=== PATIENT | female | born 1985 | race Caucasian/White ===

== ENCOUNTER → 2017-08-04 10:12 | Outpatient (CLI) | payer SELFPAY ==
[2017-08-04 12:46] LABS: Thyroid Stim Hormone (TSH) 1.15 uIU/mL (0.358-3.74)
== END ==
PROVIDERS: Visit Provider Obstetrics & Gynecology
DX: N95.1 Menopausal and female climacteric states (principal); R61 Generalized hyperhidrosis
CPT/HCPCS: 36415; 84443

== ENCOUNTER → 2017-10-25 16:34 | Outpatient (CLI) | payer SELFPAY ==
--- NOTE | 2017-10-25 16:34 | DT_ITS ---
This patient was seen during an EMR downtime October 18, 2017 - October 25, 2017. This patient may have a combination of paper and electronic documentation or all paper documentation. All documentation is viewable within the e-chart portion of [facility] for each patient visit.
[2017-10-25 20:07] LABS: Chlamydia Trachomatis by PCR Negative (Negative); Neisserai gonorrhoeae by PCR Negative (Negative); Probe Check PASS; Sample Adequacy Control PASS; Specimen Processing Control PASS
== END ==
PROVIDERS: Visit Provider Obstetrics & Gynecology
DX: Z11.3 Encounter for screening for infections with a predominantly sexual mode of transmission (principal)
CPT/HCPCS: 87491; 87591

== ENCOUNTER → 2017-11-02 14:25 | Outpatient (CLI) | payer SELFPAY ==
[2017-11-02 16:03] LABS: Absolute Lymphocyte Count 1.79 X10^3/ul (0.83-4.51); Absolute Neutrophil Count 5.7 X10^3/uL (2.0-7.7); Basophil# 0.01 X10^3/uL; Basophil% 0.1 % (0-1); Eosinophil# 0.05 X10^3/uL; Eosinophils% 0.6 % (0-5); Hematocrit 36.5 % (37-47); Hemoglobin 12.9 g/dl (12.0-15.0); Lymphocyte # 1.79 X10^3/ul (4.0); Lymphocyte % 21.9 % (19-41); Mean Corp Hgb Conc 35.3 g/gl (32-36); Mean Corpuscular Hgb 31.2 pg (27.0-32.0); Mean Corpuscular Volume 88.2 fL (81-99); Mean Platelet Vol. 11.1 fl (6.2-12.0); Monocyte# 0.59 X10^3/uL; Monocyte% 7.2 % (0-10); Neutrophil # 5.72 X10^3/uL (2.7-7.7); Neutrophil % 70.1 % (47-70); Platelet Count 268 K/mm3 (150-450); RBC Distribution Width CV 11.7 % (11.6-14.6); RBC Distribution Width SD 37.3 fl (35.1-43.9); Red Blood Count 4.14 M/mm3 (4.2-5.4); White Blood Count 8.2 K/mm3 (4.4-11.0)
[2017-11-02 16:05] LABS: POSITIVE COUNT NO; POSITIVE DIFFERENTIAL NO; POSITIVE MORPHOLOGY NO
[2017-11-02 16:14] LABS: Color, Urine Yellow (Yellow); Glucose, Dipstick 100 mg/dl (Normal); Leukocyte Esterase-Dipstick 25 /ul (Negative); Nitrite-Dipstick Negative (Negative); Occult Blood-Urine 10 /ul (Negative); Protein-Dipstick 30 mg/dl (Negative); Specific Gravity, Urine 1.025 (1.002-1.030); Urine Bilirubin Dipstick Negative (Negative); Urine Clarity Turbid (Clear); Urine Urobilinogen 1 mg/dl (Normal)
[2017-11-02 16:27] LABS: Ketone-Dipstick 150 mg/dl (Negative)
[2017-11-02 16:36] LABS: Thyroid Stim Hormone (TSH) 0.02 uIU/mL (0.358-3.74)
[2017-11-03 09:48] LABS: HIV - WCH Non-Reactive (Nonreactive); Rubella IgG > 500.0 IU/mL
[2017-11-03 10:15] LABS: Free T3 2.9 pg/mL (2.18-3.98); T4 Free Direct 1.44 ng/dL (0.76-1.46)
[2017-11-04 13:22] LABS: HEPATITIS B SURFACE AG Negative (Negative); Hep C Antibodies <0.1 s/co ratio (0.0-0.9)
[2017-11-05 03:47] LABS: Prenatal RPR NONREACTIVE (NONREACTIVE)
== END ==
PROVIDERS: Visit Provider Obstetrics & Gynecology
DX: O99.281 Endocrine, nutritional and metabolic diseases complicating pregnancy, first trimester (principal); R94.6 Abnormal results of thyroid function studies; Z3A.00 Weeks of gestation of pregnancy not specified
CPT/HCPCS: 36415; 81002; 84439; 84443; 84481; 85025; 86703; 86762; 86803; 87340

== ENCOUNTER → 2018-03-15 08:31 | Outpatient (CLI) | payer SELFPAY ==
[2018-03-15 11:16] LABS: Glucose Challenge Gest 1H 50g 107 mg/dL (70-140)
[2018-03-15 11:17] LABS: Hematocrit 34.4 % (37-47); Hemoglobin 11.6 g/dl (12.0-15.0); Mean Corp Hgb Conc 33.7 g/gl (32-36); Mean Corpuscular Hgb 31.2 pg (27.0-32.0); Mean Corpuscular Volume 92.5 fL (81-99); Mean Platelet Vol. 10.5 fl (6.2-12.0); Platelet Count 275 K/mm3 (150-450); RBC Distribution Width CV 13.4 % (11.6-14.6); RBC Distribution Width SD 43.9 fl (35.1-43.9); Red Blood Count 3.72 M/mm3 (4.2-5.4); Scan Indicated on CBC? Y/N NO; White Blood Count 10.1 K/mm3 (4.4-11.0)
== END ==
PROVIDERS: Visit Provider Obstetrics & Gynecology
DX: Z34.83 Encounter for supervision of other normal pregnancy, third trimester (principal)
CPT/HCPCS: 36415; 82950; 85027

== ENCOUNTER → 2018-05-18 10:16 | Outpatient (CLI) | payer SELFPAY | LOC: LABSPEC 10:17 | PROVIDERS: Visit Provider Obstetrics & Gynecology | DX: Z36.85 Encounter for antenatal screening for Streptococcus B (principal) | CPT/HCPCS: 87081 ==

== ENCOUNTER 2018-06-09 02:25 | Inpatient (IN) | payer SELFPAY ==
[2018-06-09] MEDS: Lactated Ringers 1,000 ML 50 ML IV (03:00)
[2018-06-09 03:18] LABS: Hematocrit 36.6 % (37-47); Hemoglobin 12.8 g/dl (12.0-15.0); Mean Corpuscular Hgb 30.4 pg (27.0-32.0); Mean Corpuscular Volume 86.9 fL (81-99); Mean Platelet Vol. 10.4 fl (6.2-12.0); Platelet Count 303 K/mm3 (150-450); RBC Distribution Width CV 13.2 % (11.6-14.6); Red Blood Count 4.21 M/mm3 (4.2-5.4); Scan Indicated on CBC? Y/N NO
[2018-06-09 03:21] VITALS: BMI 29.0
--- NOTE | 2018-06-09 04:16 | PCM.PN.OB ---
Subjective: Feeling contractions strongly Objective: Afeb VSS FHR tracing Cat 1. - Physical Exam General: Alert, Oriented x3, Cooperative, No apparent distress Abdomen: Soft, Non Tender, Non-Distended, Gravid, Appropriate for Gestational Age Extremities: No edema Skin: No rashes Neurological: Neuro grossly intact Psych/Mental Status: Normal Affect Comment: CE Weight: 164 lb Body Mass Index (BMI) 29.0 Laboratory Tests Past 24 Hrs 06/09/18 06/09/18 03:00 03:00 WBC 12.0 H RBC 4.21 Hgb 12.8 Hct 36.6 L MCV 86.9 MCH 30.4 MCHC 35.0 RDW 13.2 RDW Differential 41.0 Plt Count 303 MPV 10.4 Blood Type B POSITIVE Antibody Screen NEGATIVE Medical Necessity - Tobacco Use Smoking Status: Never smoker Assessment/Plan Progressing in labor. AROM performed with clear fluid noted. Expect FD soon.
--- NOTE | 2018-06-09 04:23 | DCINST_ITS ---
Discharge Diet: No Restrictions Discharge Activity: Return to Normal Activity, May Drive, May Shower Return to work on:: 08/08/18 May shower in (days): 0 May resume sexual activity in: 6 weeks Call your doctor if your incision/area has: Sudden Increased Bleeding, Increased Pain/ Swelling, Foul Smelling Discharge Call your doctor if you observe: Fever of 101 or Higher, Inability to urinate, Inability to have a bowel movement, Using more than one pad per hour, Shortness of breath, Chest pain, Calf discomfort, Uncontrolled pain Cleanse incision/area with: Soap & Water Additional Instructions: If you experience any of the following, contact your healthcare provider. * Bleeding that soaks a pad every hour for 2 hours * Fever 100.4 or higher * Unrelieved incision or abdominal pain * Swelling, redness, discharge or bleeding from your incision or episiotomy site * Your incision begins to separate * Problems urinating (including inability to urinate or burning while urinating). * Visual changes * Severe headache * Flu-like symptoms * Pain or redness in one of both of your breasts * Pain, warmth, tenderness or swelling in your legs, especially the calf area * Frequent nausea and vomiting * Symptoms of depression or anxiety If you experience any of the following, call 911 or go to the nearest Emergency Room. * Chest pain * Problems breathing * Seizure activity * Partial or complete paralysis of a body part, slurred speech, weakness or drooping of the face, or a sudden inability to walk or hold your balance Allergies/Adverse Reactions: Allergies No Known Allergies Allergy (Verified 06/09/18 03:22) Medications to take at Discharge Vits [Prenatabs FA ] 1 tablet PO DAILY 07/24/14 Ibuprofen 600 mg PO 4X/DAY #30 tab 06/09/18 The following prescriptions were given: Ibuprofen 600 mg PO 4X/DAY #30 tab Please Follow Up With: Yana Galeano MD When: 6 weeks Primary Care Physician: Fantasma Woodward [Primary Care Provider] - Test Results: Test results from this visit will be discussed in further detail at your follow- up appointment, if applicable.
--- NOTE | 2018-06-09 04:23 | PCM.OB.VAG ---
- Problem List (1) Active labor at term Status: Acute Vaginal Delivery Maternal Presentation: Active Labor 40 weeks ega in active labor Amniotic Membrane Rupture Type: Artificial Rupture of Membrane time: 0410 Amniotic Fluid Description: Clear Final LIZ: 06/09/18 Final LIZ Source: US <20 weeks Gestational age: 40 Weeks and 0 Days Date of Procedure: 06/09/18 Pre-Operative Diagnosis: Labor Post-Operative Diagnosis: same Surgery/ Procedure Performed: Spontaneous Vaginal Delivery Type of Anesthesia: None Description of Procedure: Progressed to FD then pushed over two contractions to deliver a live male without complication. There was a tight nuchal cord which was reduced at delivery. The mouth was suctioned with a bulb suction. There was an active cry shortly after delivery. Delayed cord clamping was employed. The cord was clamped and cut and baby placed on mom's chest for skin to skin. The placenta delivered spontaneously intact with a centrally located 3VC. The uterus contracted well. Inspection revealed a small first degree posterior vaginal tear. This was repaired with a single figure of eight stitch of 2-0 Vicryl. Presentation: Vertex Placental Delivery Description: Spontaneous Placenta Disposition: [facility] Percentage of Placenta Abruption: 0 Cord Vessel Description: 3 Vessels Nuchal Cord Compression: Without compression Cord Entanglement: Around neck x 1, tight Estimated Blood Loss: 300cc Infant A gender: Male (1 minute): 8 (5 minute): 9 Episiotomy Description: None Laceration: Midline, Vaginal Extension/lac, 1st degree Medications given after delivery: IV Pitocin Complications: None
[2018-06-09] MEDS: Oxytocin 30 units/NS 500 ml 30 UNITS/500 ML IV.SOLN 334 UNITS IV (05:00)
[2018-06-09] MEDS: Oxytocin 30 units/NS 500 ml 30 UNITS/500 ML IV.SOLN 167 UNITS IV (05:30)
[2018-06-09] MEDS: Ibuprofen 600 MG Tablet PO ×2 (05:37→11:47)
--- NOTE | 2018-06-09 07:34 | PCM.PN.OB ---
Subjective: Day of delivery Doing well. No concerns voiced. Breast feeding and baby has latched on well at least once for 45 min feed - Physical Exam General: Alert, Oriented x3, Cooperative, No apparent distress HEENT: Atraumatic Neck: Supple Psych/Mental Status: Normal Affect Weight: 74.389 kg Body Mass Index (BMI) 29.0 Laboratory Tests Past 24 Hrs 06/09/18 06/09/18 03:00 03:00 WBC 12.0 H RBC 4.21 Hgb 12.8 Hct 36.6 L MCV 86.9 MCH 30.4 MCHC 35.0 RDW 13.2 RDW Differential 41.0 Plt Count 303 MPV 10.4 Blood Type B POSITIVE Antibody Screen NEGATIVE Medical Necessity - Tobacco Use Smoking Status: Never smoker Assessment/Plan All Active Problems Active labor at term (Resolved) Day of Delivery 39 + wk Spont labor to Stable pp. Continue care
[2018-06-09 08:37] VITALS: BP 124/71; PULSE 89; RESP 16; TEMP 36.7; O2SAT 97
[2018-06-09] MEDS: Prenatal Vits Tablet 1 TABLET PO (11:49)
[2018-06-09 12:45] VITALS: BP 111/64; PULSE 106; RESP 18; TEMP 36.7; O2SAT 99
[2018-06-09 15:59] VITALS: BP 124/81; PULSE 100; RESP 16; TEMP 36.9; O2SAT 100
[2018-06-09 20:15] VITALS: BP 122/83; PULSE 106; RESP 15; TEMP 36.9; O2SAT 97
[2018-06-09 23:45] VITALS: BP 113/69; PULSE 95; RESP 15; TEMP 36.8; O2SAT 95
[2018-06-10 05:06] VITALS: BP 116/74; PULSE 84; RESP 15; TEMP 36.9; O2SAT 98
[2018-06-10] MEDS: Ibuprofen 600 MG Tablet PO ×2 (05:10→20:11)
[2018-06-10 05:32] LABS: Hematocrit 33.5 % (37-47); Hemoglobin 11.4 g/dl (12.0-15.0); Mean Corpuscular Hgb 29.8 pg (27.0-32.0); Mean Corpuscular Volume 87.7 fL (81-99); Mean Platelet Vol. 10.3 fl (6.2-12.0); Platelet Count 281 K/mm3 (150-450); RBC Distribution Width CV 13.2 % (11.6-14.6); RBC Distribution Width SD 40.7 fl (35.1-43.9); Red Blood Count 3.82 M/mm3 (4.2-5.4); White Blood Count 15.8 K/mm3 (4.4-11.0)
[2018-06-10 05:37] LABS: Scan Indicated on CBC? Y/N NO
--- NOTE | 2018-06-10 07:42 | PCM.PN.OB ---
Subjective: PPD#1 Doing well minimal pain. States would like to stay due to difficulty with nursing, breast/nipple soreness - Physical Exam General: Alert, Oriented x3, Cooperative, No apparent distress HEENT: Atraumatic Neck: Supple Abdomen: Soft - Fundus firm NT at umbilicus Psych/Mental Status: Normal Affect Vital Signs Temp Pulse Resp BP Pulse Ox 98.4 F 84 15 116/74 98 06/10/18 05:06 06/10/18 05:06 06/10/18 05:06 06/10/18 05:06 06/10/18 05:06 Oxygen Delivery Method Room Air Weight: 74.389 kg Body Mass Index (BMI) 29.0 Intake and Output for Last 24 Hours 06/08/18 06/09/18 06/10/18 23:59 23:59 23:59 Output Total 700 / 700 Balance -700 / -700 Laboratory Tests Past 24 Hrs 06/10/18 04:57 WBC 15.8 H RBC 3.82 L Hgb 11.4 L Hct 33.5 L MCV 87.7 MCH 29.8 MCHC 34.0 RDW 13.2 RDW Differential 40.7 Plt Count 281 MPV 10.3 Medical Necessity - Tobacco Use Smoking Status: Never smoker Assessment/Plan All Active Problems Active labor at term (Resolved) PPD#1 39 + wk Spont labor to Stable pp. Continue care
[2018-06-10 08:00] VITALS: BP 113/59; PULSE 91; RESP 18; TEMP 37; O2SAT 96
[2018-06-10] MEDS: Prenatal Vits Tablet 1 TABLET PO (10:08)
--- NOTE | 2018-06-10 10:15 | NURSING ---
assisted mom with latching baby onto breast. deep latch achieved. mom still expresses significant breast pain throughout each feeding. pain medicine offered, but declined
--- NOTE | 2018-06-10 12:21 | CASEMGMT ---
Social Work Brief Assessment - Labor and Delivery Unit Refer documentation below for further details. Date of Referral/Notification: 06/10/18 Time of Referral: 9:11A Referred By: RNSONIA Reason for Referral: PHQ9 TRIGGERED REFERRAL Date of Intervention: 06/10/18 Time of Intervention: 11:00A Informant: Medical record and mother of baby (MOB) and father of baby (FOB) History: PT WITH HX OF DEPRESSION AFTER FIRST BABY 3 YEARS AGO AND SOME DEPRESSION THROUGHOUT THIS . Assessment: PT IS A 32 Y/O FEMALE WHO DELIVERED BABY BOY (ALBERTA MG) YESTERDAY, 06/09/18. INTRODUCED THIS WORKER?S ROLE AND REASON FOR REFERRAL. MOB CALM AND COOPERATIVE DURING ASSESSMENT. MOB AND FOB, MARIA DEL CARMEN MG REPORT HAVE ALL NEEDS MET FOR BABY. MOB HAVING SOME DIFFICULTY WITH . SUPPORT AND EDUCATION PROVIDED. ANTICIPATE NURSE TO MEET WITH PT THIS DAY. MOB REPORTS SOME HX OF DEPRESSION AND STATES AT ONE TIME DID DO COUNSELING NOT RELATED TO DEPRESSION. PCP AND CHILDREN?S RN ANTE PARTUM IS DR. RUBY HOOD. MOB DENIES ANY HX OF SUBSTANCE ABUSE. DISCUSSED DEPRESSION SIGNS AND SYMPTOMS. MOB VERBALIZES UNDERSTANDING OF SIGNS AND SYMPTOMS AND DENIES ANY NEEDS FOR SERVICES. INFORMATION PACKET ON PPD PROVIDED. UPDATED PT?S NURSE, SONIA. THIS WORKER TO REMAIN AVAILABLE SHOULD ANY FURTHER NEEDS ARISE. Plan: ANTICIPATE D/C HOME TOMORROW. INFORMATION AND RESOURCES PROVIDED ON PPD. -Shaunna Velasco, [employer], [employer]
[2018-06-10 14:05] VITALS: BP 131/89; PULSE 107; RESP 18; TEMP 36.6; O2SAT 97
[2018-06-10 20:04] VITALS: BP 116/72; PULSE 96; RESP 18; TEMP 37; O2SAT 96
[2018-06-11 02:35] VITALS: BP 111/75; PULSE 87; RESP 18; TEMP 37.2; O2SAT 98
[2018-06-11 07:36] VITALS: BP 97/61; PULSE 91; RESP 18; TEMP 36.9; O2SAT 96
--- NOTE | 2018-06-11 10:02 | PCM.PN.OB ---
Subjective: PPD#2 Doing well. Continued soreness of nipples, but baby is latching on better. Minimal pain and doing well. Feels ready to go home today. Denies any depressive symptoms. - Physical Exam General: Alert, Oriented x3, Cooperative, No apparent distress HEENT: Atraumatic Abdomen: Soft - Fundus firm NT at 3 cm inferior to umbilicus Neurological: Cranial nerves II-XII grossly intact Psych/Mental Status: Normal Affect Vital Signs Temp Pulse Resp BP Pulse Ox 98.5 F 91 18 97/61 96 06/11/18 07:36 06/11/18 07:36 06/11/18 07:36 06/11/18 07:36 06/11/18 07:36 Oxygen Delivery Method Room Air Weight: 74.389 kg Body Mass Index (BMI) 29.0 Intake and Output for Last 24 Hours 06/09/18 06/10/18 06/11/18 23:59 23:59 23:59 Output Total 700 / 700 Balance -700 / -700 Medical Necessity - Tobacco Use Smoking Status: Never smoker Assessment/Plan All Active Problems Active labor at term (Resolved) PPD#2 39 + wk Spont labor to Stable pp. Continue care
[2018-06-11 12:30] VITALS: BP 121/60; PULSE 80; RESP 16; TEMP 36.7; O2SAT 99
--- NOTE | 2018-06-15 17:52 | NURSING ---
Follow up phone call made. Mom was scheduled for a visit today but cancelled due to the cold weather. Mom states that she continues to have some nipple soreness. Mom states that she is feeling good though otherwise. Mom will call if she would like to reschedule another visit. Sonia RUIZ
== END 2018-06-11 12:40 | disposition home or self-care (01) | DRG 807 ==
PROVIDERS: Admitting Provider Obstetrics & Gynecology; Family Provider Family Medicine; PCP Family Medicine; Visit Provider Obstetrics & Gynecology
DX: O69.1XX0 Labor and delivery complicated by cord around neck, with compression, not applicable or unspecified (principal); Z37.0 Single live birth; O70.0 First degree perineal laceration during delivery; O99.284 Endocrine, nutritional and metabolic diseases complicating childbirth; R94.6 Abnormal results of thyroid function studies; Z3A.40 40 weeks gestation of pregnancy
CPT/HCPCS: 59025; 59050; 85027; 86850; 86900; 99218; J7120; G0378